=== PATIENT | female | born 1940 | race Caucasian/White ===

== ENCOUNTER 2017-09-26 16:24 | Emergency (ER) | payer OTHER ==
[~2017-09-26] VITALS: Ht 157.5 cm; Wt 49.9 kg
[~2017-09-26 16:24] MED LIST: ESOM40EC PO; METO50TA20 PO; VALS160C PO
[2017-09-26 17:05] VITALS: BP 139/87
[2017-09-26] MEDS ORDERED: NACL 0.9% 1,000 ML IV ONE (17:20)
[2017-09-26] MEDS ORDERED: ACETAMINOPHEN EXTRA STRENGTH 500 MG TAB PO ONE (17:30)
[2017-09-26 17:42] LABS: BASOPHILS # (AUTO) 0.2 K/uL (0.00-0.22); BASOPHILS % (AUTO) 1.8 % (0.0-2.0); EOSINOPHILS % (AUTO) 0.2 % (0.0-4.0); HEMATOCRIT 35.3 % (36-48); HEMOGLOBIN 11.6 g/dL (12.0-16.0); LYMPHOCYTES # (AUTO) 0.8 K/uL (2.5-16.5); LYMPHOCYTES % (AUTO) 9.3 % (20.5-51.1); MEAN CORPUSCULAR HEMOGLOBIN 31 pg (27-31); MEAN CORPUSCULAR HGB CONC 33 g/dL (33-37); MEAN CORPUSCULAR VOLUME 93 fL (80-94); MONOCYTES # (AUTO) 0.8 K/uL (0.8-1.0); MONOCYTES % (AUTO) 9.6 % (1.7-9.3); NEUTROPHILS # (AUTO) 6.7 K/uL (1.8-7.7); NEUTROPHILS % (AUTO) 79.1 % (42.2-75.2); PLATELET COUNT (AUTO) 309 K/uL (140-450); RED BLOOD CELL COUNT(AUTO) 3.81 MIL/uL (4.20-5.40); RED CELL DISTRIBUTION WIDTH 13.2 % (11.6-13.7); WHITE BLOOD COUNT (AUTO) 8.5 K/uL (4.8-10.8)
[2017-09-26 18:15] LABS: ANION GAP 11.6 (8-16); CARBON DIOXIDE 26.5 mmol/L (21-32); CHLORIDE 95 mmol/L (98-107); CREATININE 0.5 mg/dL (0.6-1.3); GLUCOSE 112 mg/dL (74-106); POTASSIUM 4.1 mmol/L (3.5-5.1); SODIUM SERUM 129 mmol/L (136-145); UREA NITROGEN, BLOOD 21 mg/dL (7-18)
[2017-09-26 18:23] LABS: ALBUMIN 3.5 g/dL (3.4-5.0); ASPARTATE AMINOTRANSFERASE 27 U/L (15-37); TOTAL BILIRUBIN 0.4 mg/dL (0.0-1.0)
[2017-09-26 21:03] LABS: APPEARANCE,URINE CLEAR (CLEAR); BILIRUBIN,URINE NEGATIVE (NEGATIVE); BLOOD, URINE NEGATIVE (NEGATIVE); COLOR,URINE YELLOW (YELLOW); LEUKOCYTE ESTERASE ,URINE NEGATIVE (NEGATIVE); NITRITE, URINE NEGATIVE (NEGATIVE); PH,URINE 5.5 (5.0-9.0); UGLUCOSE NEGATIVE (NEGATIVE)
[2017-09-26 21:06] VITALS: BP 127/68
== END 2017-09-26 21:00 | disposition home or self-care (01) ==
LOC: MED 16:24
DX: J11.1 Influenza due to unidentified influenza virus with other respiratory manifestations (principal); Z86.73 Personal history of transient ischemic attack (TIA), and cerebral infarction without residual deficits; I10 Essential (primary) hypertension; Z79.899 Other long term (current) drug therapy; Z88.8 Allergy status to other drugs, medicaments and biological substances; Z88.2 Allergy status to sulfonamides; Z85.3 Personal history of malignant neoplasm of breast
CPT/HCPCS: 36415; 71045; 80053; 81003; 85025; 87086; 87804; 93005; 96360; 99285